=== PATIENT | female | born 1990 | race Asian ===

== ENCOUNTER 2016-12-01 06:20 | Inpatient (IN) | payer SELFPAY ==
[~2016-12-01] VITALS: Ht 173 cm; Wt 78.0 kg
[2016-12-01] MEDS ORDERED: PROMETHAZINE 25 MG/ML VIAL IVP PRN (06:45)
[2016-12-01] MEDS ORDERED: NALBUPHINE 10 MG/ML AMP IVP PRN (06:45)
[2016-12-01] MEDS ORDERED: METHYLERGONOVINE 0.2 MG/ML AMP IM SCH (06:45)
[2016-12-01] MEDS ORDERED: OXYTOCIN 20 UNITS/LR PREMIX 1,000 ML IV SCH (06:45)
[2016-12-01] MEDS ORDERED: CARBOPROST 250 MCG/ML AMP IM PRN (06:45)
[2016-12-01] MEDS ORDERED: OXYTOCIN 10 UNITS/ML VIAL IM ONE (06:45)
[2016-12-01] MEDS ORDERED: IBUPROFEN 800 MG TAB PO PRN (06:45)
[2016-12-01 07:13] LABS: BASOPHILS # (AUTO) 0.2 K/uL (0.00-0.22); BASOPHILS % (AUTO) 1.2 % (0.0-2.0); EOSINOPHILS # (AUTO) 0.1 K/uL (0-0.4); EOSINOPHILS % (AUTO) 0.6 % (0.0-4.0); HEMATOCRIT 43.3 % (36-48); HEMOGLOBIN 14.6 g/dL (12.0-16.0); LYMPHOCYTES # (AUTO) 1.6 K/uL (2.5-16.5); LYMPHOCYTES % (AUTO) 11.1 % (20.5-51.1); MEAN CORPUSCULAR HEMOGLOBIN 32 pg (27-31); MEAN CORPUSCULAR HGB CONC 34 g/dL (33-37); MEAN CORPUSCULAR VOLUME 94 fL (80-94); NEUTROPHILS # (AUTO) 11.1 K/uL (1.8-7.7); NEUTROPHILS % (AUTO) 80.1 % (42.2-75.2); PLATELET COUNT (AUTO) 193 K/uL (140-450); RED BLOOD CELL COUNT(AUTO) 4.59 MIL/uL (4.20-5.40); RED CELL DISTRIBUTION WIDTH 12.5 % (11.6-13.7)
[2016-12-01 08:00] VITALS: BP 113/69
--- NOTE | 2016-12-01 08:10 | NUR ---
PATIENT HAS BEEN SCREENED AND CATEGORIZED LOW NUTRITION RISK. PATIENT WILL BE SEEN WITHIN 7 DAYS OF ADMISSION. 12/07/[address]
[2016-12-01] MEDS: LACTATED RINGERS 1,000 ML IV SCH ×3 (08:35→16:08)
[2016-12-01 08:46] LABS: APPEARANCE,URINE CLEAR (CLEAR); BILIRUBIN,URINE NEGATIVE (NEGATIVE); BLOOD, URINE 3+ (NEGATIVE); COLOR,URINE YELLOW (YELLOW); LEUKOCYTE ESTERASE ,URINE NEGATIVE (NEGATIVE); NITRITE, URINE NEGATIVE (NEGATIVE); PH,URINE 6.5 (5.0-9.0); PROTEIN,URINE NEGATIVE (NEGATIVE); UGLUCOSE NEGATIVE (NEGATIVE); UROBILINOGEN,URINE 0.2 EU/dL (0.2 - 1)
[2016-12-01 09:22] LABS: BACTERIA,URINE FEW /HPF (None Seen); MUCUS,URINE 1+ /LPF (None Seen); WBC,URINE 0-4 /HPF (0-5)
[2016-12-01 09:25] LABS: HIV RAPID SCREEN NON-REACTIVE (NON REACTIV)
[2016-12-01] MEDS ORDERED: BUPIVACAINE 0.125%/NS PREMIX 250 ML ONE (10:31)
[2016-12-01] MEDS ORDERED: OXYTOCIN 20 UNITS/LR PREMIX 1,000 ML IV ONE (11:30)
[2016-12-01 12:49] LABS: RAPID PLASMA REAGIN NON-REACTIVE (Non Reactiv)
[2016-12-01] MEDS ORDERED: NALBUPHINE HYDROCHLORIDE 10 MG/ML VIAL ONE (17:05)
[2016-12-01] MEDS ORDERED: PROMETHAZINE 25 MG/ML VIAL ONE (17:06)
[2016-12-01] MEDS ORDERED: OXYTOCIN 10 UNITS/ML VIAL ONE (19:33)
[2016-12-02] MEDS ORDERED: IBUPROFEN 800 MG TAB PO PRN (00:55)
[2016-12-02] MEDS ORDERED: BENZOCAINE/MENTHOL 20%-0.5% 60 GM CAN TP PRN (00:55)
[2016-12-02] MEDS ORDERED: MEASLES, MUMPS, AND RUBELLA 1 VIAL SQVAC PRN (00:55)
[2016-12-02] MEDS ORDERED: oxyCODONE/APAP 5/325 MG 1 TAB TAB PO PRN (00:55)
[2016-12-02] MEDS ORDERED: TEMAZEPAM 15 MG CAP PO PRN (00:55)
[2016-12-02] MEDS ORDERED: WITCH HAZEL 40 PAD PACKAGE TP PRN (00:55)
[2016-12-02] MEDS ORDERED: OXYTOCIN 10 UNITS/ML VIAL IM PRN (00:55)
[2016-12-02] MEDS ORDERED: METHYLERGONOVINE 0.2 MG/ML AMP IM PRN (00:55)
[2016-12-02] MEDS: HYDROcodone/APAP 5/325 MG 1 TAB TAB PO PRN ×3 (06:08→22:16)
[2016-12-02] MEDS ORDERED: DOCUSATE SOD/SENNA 50/8.6 MG 1 TAB PO SCH (21:00)
[2016-12-03 07:24] LABS: HEMOGLOBIN 13.4 g/dL (12.0-16.0)
[2016-12-03 07:43] LABS: HEMATOCRIT 38.7 % (36-48)
== END 2016-12-03 18:30 | disposition home or self-care (01) | DRG 775 ==
LOC: MLD 06:20 → MFCC 12-02 00:30
PROVIDERS: ADMIT Obstetrics & Gynecology; ATTEND Obstetrics & Gynecology
PROC: 10E0XZZ Delivery of Products of Conception, External Approach (ICD-10-PCS; principal; 2016-12-01)
PROC: 10907ZC Drainage of Amniotic Fluid, Therapeutic from Products of Conception, Via Natural or Artificial Opening (ICD-10-PCS; 2016-12-01)
PROC: 0W8NXZZ Division of Female Perineum, External Approach (ICD-10-PCS; 2016-12-01)
PROC: 00HU33Z Insertion of Infusion Device into Spinal Canal, Percutaneous Approach (ICD-10-PCS; 2016-12-01)
PROC: 3E0R3CZ (ICD-10-PCS; 2016-12-01)
DX: O80 Encounter for full-term uncomplicated delivery (principal); Z37.0 Single live birth; Z3A.39 39 weeks gestation of pregnancy
CPT/HCPCS: 36415; 51702; 59409; 81001; 85018; 85025; 86592; 86762; 86886; 86900; 86901; J2300; J2550; J2590; J3490; J7120